=== PATIENT | male | born 1965 | race Caucasian/White ===

== ENCOUNTER 2020-08-25 14:02 | Outpatient (REF) | payer BC, SELFPAY ==
[2020-08-25 14:14] LABS: HCT 42.5 % (40.0-50.0); HGB 14.8 g/dL (13.5-17.5); MCH 34.8 pg (27.0-33.0); MCHC 34.8 % (32.0-36.0); MPV 9.8 fL (8.0-11.0); Platelet Count 201 10^3/uL (130-400); RBC 4.25 10^6/uL (4.36-5.78); RDW 12.6 % (11.8-14.1); RDW-SD 46.3 fL; WBC 6.26 10^3/uL (4.4-10.8)
[2020-08-25 14:38] LABS: ALT 79 U/L (16-63); AST 51 U/L (15-37); Albumin 4.1 g/dL (3.4-5.0); Alkaline Phosphatase 65 U/L (46-116); Anion Gap 10.5 mmol/L (3-11); BUN 22 mg/dL (7-18); Bilirubin, Total 0.8 mg/dL (0.2-1.0); CO2 27.5 mmol/L (21.0-32.0); CREATININE 1.4 mg/dL (0.70-1.30); Calcium 9.2 mg/dL (8.5-10.1); Calculated LDL 94 mg/dL (<100); Chloride 99 mmol/L (98-107); Cholesterol 177 mg/dL (<200); Estimated GFR 52.24 (mL/min/1.73m2); Glucose 126 mg/dL (74-106); HDL Cholesterol 35 mg/dL (40-60); Potassium 3.9 mmol/L (3.5-5.1); Sodium 137 mmol/L (136-145); Total Protein 7.6 g/dL (6.4-8.2); Triglyceride 244 mg/dL (<150)
[2020-08-25 22:29] LABS: PSA, Screening 0.4 ng/mL (0.0-3.5)
== END 2020-08-25 14:03 | disposition home or self-care (01) ==
LOC: NCHCN 14:02
PROVIDERS: PCP Family Medicine; Visit Provider Family Medicine
DX: Z00.00 Encounter for general adult medical examination without abnormal findings (principal); E78.5 Hyperlipidemia, unspecified; R03.0 Elevated blood-pressure reading, without diagnosis of hypertension; Z12.5 Encounter for screening for malignant neoplasm of prostate
CPT/HCPCS: 80053; 80061; 84153; 85027

== ENCOUNTER 2021-08-10 13:54 | Emergency (ER) | payer BC, SELFPAY ==
[2021-08-10 13:57] VITALS: BP 187/84; PULSE 75; RESP 18; TEMP 36.6; O2SAT 98
--- NOTE | 2021-08-10 14:30 | DI.RAD_ITS ---
Exam(s) XR KNEE LT 4V AP,LAT,JEFFREY,PAT EXAM: XR KNEE LT 4V AP,LAT,JEFFREY,PAT CLINICAL HISTORY: trauma, left knee pain. TECHNIQUE: 2D digital imaging was performed. COMPARISON: No exams were available for comparison FINDINGS: There is soft tissue swelling anterior to the patella but no fractures evident. No obvious joint eff usion. No osseous lesions. No radiopaque foreign body IMPRESSION: Anterior soft tissue swelling. No fractures evident DATA REPOSITORY: RADIATION DOSE DELIVERED:
--- NOTE | 2021-08-10 14:37 | ED.GENADUL_ITS ---
Discharge Plan Disposition Patient Disposition: HOME Condition: Stable Discharge Details Clinical Impression: Bursitis, prepatellar, left, Contusion of knee, left Primary Care Provider: Marisela Wilde ED Provider: Luis Fabian Home Meds and New Rx's Prescriptions: New tramadol [Ultram] 50 mg tablet 50 mg PO BID PRNQty: 10 RF: 0 Continued trazodone 50 mg Tablet 75 mg PO QHS RF: 0 Discharge Instructions Instructions: Knee Bursitis (ED) Additional Instructions: Please take acetaminophen (tylenol) - 650mg every 6 hours by mouth as needed for pain. You received toradol in the Emergency Department. This is similar to ibuprofen. DO NOT take any additional ibuprofen or other NSAIDs (advil, motrin, naproxen) tonight. You can start taking ibuprofen tomorrow - take 600mg by mouth every 6 hours as needed for pain. If pain is severe and not controlled with ibuprofen and tylenol, then take ultram (tramadol) as prescribed. This is a opioid (narcotic). This medication can have serious side effects and can be addicting - please only take if absolutely needed. Please contact your primary care physician to arrange follow-up. If pain persist, does not improve as expected or is worsening, you will need to follow-up with orthopedics. Return to the ER immediately for any worsening or new concerning symptoms. Referrals: [facility] [Provider Group] Marisela Wilde [Primary Care Provider] - Discharge Data Discharge Date/Time-TO BE ENTERED AT DEPARTURE: 08/10/21 18:23 Medical Decision Making <Tran Fabian MD - Last Filed: 08/12/21 14:12> Anatoly Daniel is a 55-year-old man without history of medical problems presenting to emergency department with left knee pain after falling on an anterior knee 2 days ago. On exam patient is well and nontoxic-appearing. There is focal edema over the left anterior patella with trace effusion of the left knee, focal tenderness over the anterior patella. Extension limited secondary to pain, patient able to flex to 90 degrees but with pain. Left lower extremity is neurovascularly intact. Concern for fracture versus contusion versus prepatellar bursitis vs other. Exam/history at this time not consistent with DVT, femur fracture, midshaft or distal tibia/fibula fracture, septic arthritis, other infectious etiology of symptoms. Plan for Percocet, x-rays. xrays negative for fx. Given level of pain and possibility of tibial plateau fracture, plan for CT knee. Pt signed out to Dr. Luis Fabian at time of shift change with CT pending. Medical Records Medical records reviewed: Yes I reviewed the patient's medical records. Imaging Data Radiologic Study: Attestation: I personally reviewed and interpreted this imaging study as follows: Radiologist's impression: EXAM: XR KNEE LT 4V AP,LAT,JEFFREY,PAT CLINICAL HISTORY: trauma, left knee pain. TECHNIQUE: 2D digital imaging was performed. COMPARISON: No exams were available for comparison FINDINGS: There is soft tissue swelling anterior to the patella but no fractures evident. No obvious joint effusion. No osseous lesions. No radiopaque foreign body IMPRESSION: Anterior soft tissue swelling. No fractures evident <Luis Fabian MD - Last Filed: 08/10/21 18:11> Care signed out by Dr. Tran Fabian -plan to follow-up on CT of the knee to assess for fracture. CT knee intpreted by radiology: Prominent soft tissue swelling anterior to the patella. 2 x 2 millimeter ossified density off the anterosuperior patella, possibly small avulsion injury versus pre-existing calcification at this level. There are no large patellar fractures nor other fractures evident. There also does not appear to be diffusion within the intra-articular knee joint. Results were reviewed with the patient and he was provided a copy of radiology report. Patient notes that he fell on Tuesday and pain was initially not very severe. Pain was much worse yesterday and has persisted. History and exam is consistent with prepatellar bursitis. There is potential small avulsion noted on CT but I think more likely this is a pre-existing calcification which may be contributing to bursitis. Plan will be for knee immobilizer and crutches. He was encouraged to rest his knee over the next week or so and continue nonsteroidal anti- inflammatory. Given degree of pain, I will treat with Ultram for breakthrough. Patient was prescribed #10 tablets of Ultram. Risk of opioid treatment were reviewed with the patient. The patient was encouraged to follow-up with orthopedics should symptoms worsen or not improve as expected over the next week. HPI <Tran Fabian MD - Last Filed: 08/12/21 14:12> General Mode of arrival: ambulatory . Date/Time Provider Initiated Documentation: 08/10/21 13:56 . Limitations to Documentation: no limitations . Information obtained by: patient, RN notes reviewed and old records reviewed . HPI Narrative: Anatoly Daniel is a 55-year-old man without history of medical problems presenting to emergency department knee pain. Patient reports that she slipped on ice on 08/08/2020 and landed on his anterior left knee. Patient reports that there was no other impact with the ground, no other injury, did not hit his head. Patient reports that pain has been increasing since fall, and he is having trouble walking secondary to pain. He has been using a cane to walk since yesterday. He reports that pain is in the front of his knee over his patella. He denies any other pain. Denies fever, shortness of breath, cough, vomiting, diarrhea, numbness, weakness, rash, skin wound. Related Data Home Medications Medication Instructions Recorded Confirmed tramadol [Ultram] 50 mg PO BID PRN #10 tab 08/10/21 trazodone 75 mg PO QHS 08/10/21 08/10/21 Previous Rx's Medication Instructions Recorded tramadol [Ultram] 50 mg PO BID PRN #10 tab 08/10/21 Allergies Allergy/AdvReac Type Severity Reaction Status Date / Time No Known Allergies Allergy Unverified 08/10/21 14:00 General Stated Complaint: Orthopedic MISSY: 4 Review of Systems <Tran Fabian MD - Last Filed: 08/12/21 14:12> Narrative: Constitutional: denies fevers Eyes: denies eye pain ENT: denies ear pain, dental pain, sore throat Cardiovascular: denies chest pain Respiratory: denies SOB, cough GI: denies abdominal pain, vomiting, diarrhea : denies flank pain MSK: Reports left knee pain, denies back pain, neck pain, other arthralgias, myalgias Skin: denies rash Neuro: denies headaches, numbness, weakness PFSH <Tran Fabian MD - Last Filed: 08/12/21 14:12> All Active Problems (Updated 08/10/21 @ 17:51 by Luis Fabian MD) Bursitis, prepatellar, left (Acute) Contusion of knee, left (Acute) Social History Smoking/Tobacco Use Status: Current every day Tobacco Type: smokeless tobacco Smoking risk assessment performed?: Yes Alcohol Intake: current Alcohol Intake frequency: a few times a week Drug use: Never Substance use type: does not use Do you feel safe at home: Yes Do you feel safe in your relationship?: Yes Exam <Tran Fabian MD - Last Filed: 08/12/21 14:12> Narrative Exam Narrative: Constitutional: well and [id number], pleasant, conversing normally HENT: head atraumatic/normocephalic/normal inspection, mucous membranes moist Eyes: conjunctiva normal, sclera normal, pupils 3mm b/l Neck: no stridor, normal ROM, trachea midline Resp: normal work of breathing, speaking in full sentences Cardio: normal rate, normal rhythm Skin: warm, dry, normal color, no rash Neuro: alert, not altered, grossly non-focal, normal tone Ext: Mild edema anteriorly over the patella of the left knee, trace left knee effusion, no other edema of the left lower extremity, exquisite tenderness to palpation over the patella of the left knee, no medial or lateral joint tenderness, no popliteal tenderness, no tenderness of the anterior tibia on the left. Patient is holding the approximately 45 degrees of flexion, pain increases with further flexion 1, is unable to straighten knee secondary to pain in anterior patella. DP pulse intact. Psych: normal mood, normal affect, normal behavior Course <Tran Fabian MD - Last Filed: 08/12/21 14:12> Vital Signs Vital signs: Vital Signs Temperature 36.6 C 08/10/21 13:57 Pulse 75 08/10/21 13:57 Respiratory Rate 18 08/10/21 13:57 Blood Pressure 187/84 H 08/10/21 13:57 Pulse Oximetry 98 08/10/21 13:57 Temperature 36.6 C 08/10/21 13:57 Temperature Source Temporal Artery Scan 08/10/21 13:57 Pulse 75 08/10/21 13:57 Respiratory Rate 18 08/10/21 13:57 Respiratory Effort Non-Labored 08/10/21 14:01 Blood Pressure 187/84 H 08/10/21 13:57 Blood Pressure Position Sitting 08/10/21 13:57 Pulse Oximetry 98 08/10/21 13:57 Oxygen Delivery Method Room Air 08/10/21 13:57 Oxygen Flow Rate 0 08/10/21 13:57 Pain Level 8 08/10/21 13:57 Sign Out <Tran Fabian MD - Last Filed: 08/12/21 14:12> Sign Out Data: Sign Out Comment: Patient signed out to Dr. Fabian at time of shift change with CT knee pending Last updated by Tran Fabian MD at 08/10/21 16:23 PAWSS <Tran Fabian MD - Last Filed: 08/12/21 14:12> Have you Been Recently Intoxicated or Drunk Within the Last 30 days?: No Have you Ever Experienced Previous Episodes of Alcohol Withdrawal?: No Have you ever Experienced Withdrawal Seizures?: No Have you ever Experienced Delirium Tremens(DT)s?: No Have you ever undergone Alcohol Rehabilitation Treatment (i.e, inpt ot outpatient treatment programs)?: No Have you ever Experienced Blackouts?: No Have you ever Combined Alcohol with other Downers within the last 90 days?: No Have you ever Combined Alcohol with any other Substance of Abuse during the last 90 days?: No Positive Blood Alcohol level on Presentation? [PCS.BAL]: No Evidence of Increased Autonomic Activity (i.e. HR>120, tremor, sweating, agitation, nausea)?: No Result: 0
[2021-08-10] MEDS: oxyCODONE 5 mg/Acetaminophen 325 mg TAB 1 TAB PO (14:57)
--- NOTE | 2021-08-10 15:45 | DI.CT_ITS ---
Exam(s) CT LOWER EXTREMITY LT WO EXAM: CT LOWER EXTREMITY LT WO CLINICAL HISTORY: trauma, left knee pain. TECHNIQUE: Imaging Protocol: Axial computed tomography images with coronal and sagittal reformatted images were created and reviewed. CONTRAST MATERIAL: Intravenous: Omnipaque 350 Contrast volume:structured data in ml Contrast route:I V - Oral: yes / no COMPARISON: CR XR KNEE LT 4V AP,LAT,JEFFREY,PAT from 08/10/2021 FINDINGS: There is prepatellar soft tissue swelling. This is mostly edema and small hemorrhage. There is a 2 x 2 millimeter ossified density off the anterior 0 superior aspect of the patella, possibly small avu lsion fragment. Also calcification at the insertion of the quadriceps tendon on the anterosuperior p atella. No calcifications related to the patellar ligament at the inferior half of the patella. No obvious joint effusion in the intra-articular compartment. No evidence of tibial plateau fracture. No condylar fractures. Fibular head and neck are intact. M inimal degenerative changes noted. No osteophytes. Vascular calcification is noted in the popliteal artery as well as in all 3 calf runoff arteries indicating atherosclerotic involvement of these vess els IMPRESSION: Prominent soft tissue swelling anterior to the patella. 2 x 2 millimeter ossified density off the an terosuperior patella, possibly small avulsion injury versus pre-existing calcification at this level. There are no large patellar fractures nor other fractures evident. There also does not appear to b e diffusion within the intra-articular knee joint. RADIATION DOSE DELIVERED: 278.95mGy.cm Total DLP DATA REPOSITORY: All CT scans at this facility are submitted to the National Radiology Data Registry (NRDR) Dose Index Registry (DIR) with the [employer] ([employer]). RADIATION OPTIMIZATION: All CT scans at this facility use at least one of these dose optimization te chniques: automated exposure control; mA and/or kV adjustment per patient size (includes targeted exa ms where dose is matched to clinical indication); or iterative reconstruction.
[2021-08-10 16:23] VITALS: BP 165/107; PULSE 67; TEMP 36.7; O2SAT 97
[2021-08-10 17:11] VITALS: BP 160/89; PULSE 69; RESP 12; TEMP 36.7; O2SAT 95
[2021-08-10] MEDS: Ketorolac 30 MG/ML VIAL IM (18:15)
[2021-08-10 18:21] VITALS: BP 165/107; PULSE 67; RESP 12; TEMP 36.7; O2SAT 95
== END 2021-08-10 18:23 | disposition home or self-care (01) ==
PROVIDERS: Emergency Provider Student in an Organized Health Care Education/Training Program; PCP Family Medicine
DX: S80.02XA Contusion of left knee, initial encounter (principal); W18.39XA Other fall on same level, initial encounter; M70.42 Prepatellar bursitis, left knee
CPT/HCPCS: 99285; 73564; 73700; 99283; J1885

== ENCOUNTER 2021-08-26 10:51 | Outpatient (REF) | payer BC, SELFPAY ==
[2021-08-26 14:54] LABS: Hemoglobin A1C 5.3 % (<5.7)
[2021-08-26 14:57] LABS: ALT 46 U/L (16-63); AST 27 U/L (15-37); Albumin 4.2 g/dL (3.4-5.0); Alkaline Phosphatase 78 U/L (46-116); Anion Gap 9.3 mmol/L (3-11); BUN 18 mg/dL (7-18); Bilirubin, Total 0.3 mg/dL (0.2-1.0); CO2 27.7 mmol/L (21.0-32.0); CREATININE 1.2 mg/dL (0.70-1.30); Calcium 9.3 mg/dL (8.5-10.1); Calculated LDL 131 mg/dL (<100); Chloride 102 mmol/L (98-107); Cholesterol 206 mg/dL (<200); Glucose 93 mg/dL (74-106); HDL Cholesterol 40 mg/dL (40-60); Potassium 4.6 mmol/L (3.5-5.1); Sodium 139 mmol/L (136-145); Total Protein 7.7 g/dL (6.4-8.2); Triglyceride 179 mg/dL (<150)
== END 2021-08-26 10:52 | disposition home or self-care (01) ==
LOC: NCHCN 10:51
PROVIDERS: PCP Family Medicine; Visit Provider Family Medicine
DX: E78.5 Hyperlipidemia, unspecified (principal); R73.03 Prediabetes; G47.00 Insomnia, unspecified
CPT/HCPCS: 80053; 80061; 83036

== ENCOUNTER 2024-01-12 16:19 | Outpatient (REF) | payer BC, SELFPAY ==
[2024-01-12 22:15] LABS: ALT 34 U/L (16-63); AST 23 U/L (15-37); Albumin 4.4 g/dL (3.4-5.0); Alkaline Phosphatase 82 U/L (46-116); Anion Gap 10.5 mmol/L (3-11); BUN 21 mg/dL (7-18); Bilirubin, Total 0.69 mg/dL (0.2-1.0); CO2 27.5 mmol/L (21.0-32.0); CREATININE 1.3 mg/dL (0.70-1.30); Calcium 9.4 mg/dL (8.5-10.1); Calculated LDL 125 mg/dL (<100); Chloride 105 mmol/L (98-107); Cholesterol 198 mg/dL (<200); Estimated GFR 62.89 (mL/min/1.73m2); Glucose 97 mg/dL (74-106); HDL Cholesterol 56 mg/dL (40-60); Potassium 4.5 mmol/L (3.5-5.1); Sodium 143 mmol/L (136-145); Total Protein 7.7 g/dL (6.4-8.2); Triglyceride 88 mg/dL (<150); Vitamin D 25 Total 41.2 ng/mL (30-100)
[2024-01-13 19:38] LABS: PSA, Diagnostic 0.6 ng/mL (<=4.5)
== END 2024-01-12 16:20 | disposition home or self-care (01) ==
LOC: NCHCN 16:19
PROVIDERS: PCP Family Medicine; Visit Provider Family Medicine
DX: Z00.00 Encounter for general adult medical examination without abnormal findings (principal); R03.0 Elevated blood-pressure reading, without diagnosis of hypertension; E78.5 Hyperlipidemia, unspecified
CPT/HCPCS: 80053; 80061; 82306; 84153

== ENCOUNTER 2024-11-14 00:38 | Outpatient (CLI) | payer BC, SELFPAY ==
--- NOTE | 2024-11-14 08:30 | DI.RAD_ITS ---
Exam(s) XR FOOT RT COMPLETE EXAM: XR FOOT RT COMPLETE CLINICAL HISTORY: Right foot pain,M79.671. TECHNIQUE: 2D digital imaging was performed of the right foot. Three images were obtained. AP, obl ique and lateral views were obtained. COMPARISON: No exams were available for comparison FINDINGS: BONES: No acute fracture is present. No bony destructive lesion is seen. There is a large plantar bela caneal spur. Dystrophic calcifications are seen posterior to the calcaneus. JOINTS: No dislocation present. Joint spaces are well maintained. SOFT TISSUE: Normal. Atherosclerotic calcification is present. IMPRESSION: 1. Large plantar calcaneal spur. 2. Vascular calcification in the soft tissues. DATA REPOSITORY: RADIATION DOSE DELIVERED:
--- NOTE | 2024-11-14 08:40 | DI.RAD_ITS ---
Exam(s) XR FOOT LT COMPLETE EXAM: XR FOOT LT COMPLETE CLINICAL HISTORY: pain in lt foot, M79.672. TECHNIQUE: 2D digital imaging was performed of the left foot. Three images were obtained. AP, obli que and lateral views were obtained. COMPARISON: CR XR FOOT RT COMPLETE from 11/14/2024 FINDINGS: BONES: No acute fracture is present. No bony destructive lesion is seen. There is a moderate-sized pl chuy calcaneal spur. JOINTS: No dislocation present. The joint spaces are well maintained. SOFT TISSUE: Normal. IMPRESSION: 1. Plantar calcaneal spur. 2. Atherosclerotic calcification is present. DATA REPOSITORY: RADIATION DOSE DELIVERED:
== END 2024-11-14 00:58 ==
LOC: DI 00:38
PROVIDERS: PCP Family Medicine; Visit Provider Podiatrist
DX: M79.671 Pain in right foot (principal); M79.672 Pain in left foot; M77.32 Calcaneal spur, left foot; M77.31 Calcaneal spur, right foot
CPT/HCPCS: 73630

== ENCOUNTER 2025-02-02 09:15 | Outpatient (CLI) | payer BC, SELFPAY ==
--- NOTE | 2025-02-02 09:45 | DI.RAD_ITS ---
Exam(s) XR FOOT LT COMPLETE EXAM: XR FOOT LT COMPLETE CLINICAL HISTORY: evaluate pathology. TECHNIQUE: 2D digital imaging was performed of the left foot. Three images were obtained. AP, oblique and lateral views were obtained. COMPARISON: CR XR FOOT LT COMPLETE from 11/14/2024 FINDINGS: BONES: No acute fracture is present. No bony destructive lesion is seen. There is a plantar calcaneal spur. JOINTS: No dislocation present. The joint spaces are well maintained with very minimal degenerative changes present. SOFT TISSUE: Normal. Atherosclerotic calcification is present. IMPRESSION: 1. No acute abnormality. 2. The preliminary [facility] report was reviewed. DATA REPOSITORY: RADIATION DOSE DELIVERED:
--- NOTE | 2025-02-02 10:10 | DI.[facility]_ITS ---
PROCEDURE INFORMATION: Exam: XR Left Foot Exam date and time: 02/02/2025 9:40 AM Age: 59 years old Clinical indication: Pain; Foot and other: Evaluate pathology; Left TECHNIQUE: Imaging protocol: Radiologic exam of the left foot. Views: 3 or more views. COMPARISON: CR XR FOOT LT COMPLETE 11/14/2024 8:37 AM FINDINGS: Bones/joints: There is no evidence of acute fracture.There is no evidence of malalignment or dislocation. Degenerative changes in the 1st metatarsal phalangeal joint and IP joint. Soft tissues: Normal. IMPRESSION: 1. There is no evidence of acute fracture.There is no evidence of malalignment or dislocation. 2. Degenerative changes in the 1st metatarsal phalangeal joint and IP joint. Dictated and Authenticated by: Pascale Ellison MD. Orderin Ciaran Wisdom MD
== END 2025-02-02 09:35 ==
LOC: DI 09:15
PROVIDERS: PCP Family Medicine; Visit Provider Nurse Practitioner Family
DX: M79.672 Pain in left foot (principal)
CPT/HCPCS: 73630

== ENCOUNTER 2025-02-02 10:06 | Outpatient (REF) | payer BC, SELFPAY ==
[2025-02-02 18:55] LABS: Abs Immature Grans 0.02 10^3/uL (0.0-0.06); HCT 39.9 % (40.0-50.0); HGB 13.4 g/dL (13.5-17.5); Immature Grans % 0.3 %; MCH 34.2 pg (27.0-33.0); MCHC 33.6 % (32.0-36.0); MCV 102 fL (80-95); MPV 10.3 fL (8.0-11.0); Platelet Count 223 10^3/uL (130-400); RBC 3.92 10^6/uL (4.36-5.78); RDW 12.4 % (11.8-14.1); RDW-SD 46.3 fL; WBC 6.28 10^3/uL (4.4-10.8)
[2025-02-02 19:17] LABS: ALT 34 U/L (16-63); AST 21 U/L (15-37); Albumin 3.7 g/dL (3.4-5.0); Alkaline Phosphatase 87 U/L (46-116); Anion Gap 10.1 mmol/L (3-11); BUN 17 mg/dL (7-18); Bilirubin, Total 0.5 mg/dL (0.2-1.0); CO2 27.9 mmol/L (21.0-32.0); Calcium 8.7 mg/dL (8.5-10.1); Chloride 105 mmol/L (98-107); Estimated GFR 97.17 (mL/min/1.73m2); Glucose 157 mg/dL (74-106); Potassium 4.3 mmol/L (3.5-5.1); Sodium 143 mmol/L (136-145); Total Protein 7.0 g/dL (6.4-8.2); Uric Acid 6.1 mg/dL (3.5-7.2)
== END 2025-02-02 10:07 | disposition home or self-care (01) ==
LOC: LBN 10:06
PROVIDERS: PCP Family Medicine; Visit Provider Nurse Practitioner Family
DX: M79.673 Pain in unspecified foot (principal)
CPT/HCPCS: 80053; 84550; 85025

== ENCOUNTER 2025-03-12 15:15 | Outpatient (CLI) | payer BC, SELFPAY ==
--- NOTE | 2025-03-12 10:42 | DI.RAD_ITS ---
Exam(s) XR LUMBAR SPINE COMPLETE EXAM: XR LUMBAR SPINE COMPLETE CLINICAL HISTORY: eval pathology M54.50 LOWBACK PAIN LUMBAR PAIN. TECHNIQUE: 2D digital imaging was performed of the lumbar spine. Five images were obtained. AP, lateral, right oblique, left oblique and L5-S1 spot views were obtained. COMPARISON: No exams were available for comparison FINDINGS: BONES: No fracture or destructive lesion. There are endplate osteophytes in the lumbar spine particularly at L4-5. Degenerative changes of the facets are seen, particularly at L4-5 and L5-S1. DISKS: There is disc space narrowing at L5-S1. ALIGNMENT: Lumbar spinal alignment is within normal limits. No spondylolysis or spondylolisthesis. SOFT TISSUE: Atherosclerotic calcifications are present. IMPRESSION: 1. Moderate degenerative changes are seen in the lumbar spine. 2. No acute abnormality. DATA REPOSITORY: RADIATION DOSE DELIVERED:
== END 2025-03-12 15:35 ==
LOC: DI 15:16
PROVIDERS: PCP Family Medicine; Visit Provider Nurse Practitioner Family
DX: M51.360 Other intervertebral disc degeneration, lumbar region with discogenic back pain only (principal)
CPT/HCPCS: 72110

== ENCOUNTER 2025-04-12 21:32 | Outpatient (REF) | payer BC, SELFPAY ==
[2025-04-12 22:03] LABS: HCT 40.2 % (40.0-50.0); HGB 13.8 g/dL (13.5-17.5); MCH 34.2 pg (27.0-33.0); MCHC 34.3 % (32.0-36.0); MCV 100 fL (80-95); MPV 10.2 fL (8.0-11.0); Platelet Count 213 10^3/uL (130-400); RBC 4.04 10^6/uL (4.36-5.78); RDW 13.1 % (11.8-14.1); RDW-SD 47.7 fL; WBC 7.60 10^3/uL (4.4-10.8)
[2025-04-12 22:30] LABS: ALT 32 U/L (16-63); AST 23 U/L (15-37); Albumin 4.4 g/dL (3.4-5.0); Alkaline Phosphatase 72 U/L (46-116); Anion Gap 11.6 mmol/L (3-11); BUN 26 mg/dL (7-18); Bilirubin, Total 0.6 mg/dL (0.2-1.0); CO2 26.4 mmol/L (21.0-32.0); Calcium 8.7 mg/dL (8.5-10.1); Calculated LDL 110 mg/dL (<100); Chloride 104 mmol/L (98-107); Cholesterol 181 mg/dL (<200); Estimated GFR 76.37 (mL/min/1.73m2); Glucose 94 mg/dL (74-106); HDL Cholesterol 43 mg/dL (>or=40); Potassium 4.1 mmol/L (3.5-5.1); Sodium 142 mmol/L (136-145); Total Protein 7.6 g/dL (6.4-8.2); Triglyceride 143 mg/dL (<150)
[2025-04-15 10:43] LABS: PSA, Screening 1.2 ng/mL (<=4.5)
== END 2025-04-12 21:33 | disposition home or self-care (01) ==
LOC: NCHCN 21:32
PROVIDERS: PCP Family Medicine; Visit Provider Family Medicine
DX: E78.5 Hyperlipidemia, unspecified (principal); Z12.5 Encounter for screening for malignant neoplasm of prostate
CPT/HCPCS: 80053; 80061; 84153; 85027